=== PATIENT | female | born 1995 | race Hispanic/Latino ===

== ENCOUNTER 2017-10-08 14:03 | Emergency (ER) | payer SELFPAY ==
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
== END 2017-10-08 15:35 | disposition home or self-care (01) ==
LOC: ER 14:03
DX: M79.1 Myalgia (principal); V49.40XA Driver injured in collision with unspecified motor vehicles in traffic accident, initial encounter
CPT/HCPCS: 70450; 72125; 99285